=== PATIENT | female | born 1945 | race Caucasian/White ===

== ENCOUNTER 2025-03-02 12:32 | Day surgery (SDC) | payer MEDICARE ==
[2025-03-01 09:59] LABS: BASOPHILS % 0.8 % (0.0-1.0); EOSINOPHILS % 1.8 % (0.0-6.0); LYMPHOCYTES % 26.7 % (18.0-39.1); MONOCYTES % 6.6 % (4.4-11.3); NEUTROPHILS % 63.8 % (38.7-80.0); RED CELL DISTRIBUTION WIDTH 13.8 % (11.7-14.4)
[2025-03-01 10:23] LABS: INR 0.99
[2025-03-01 10:25] LABS: CHOL/HDL RATIO 3.0 (3.0-3.6); LDL CHOLESTEROL 109.0 MG/DL (60-130)
[~2025-03-02] VITALS: Ht 160 cm; Wt 81.6 kg
[2025-03-02] VITALS (13 sets, daily range): BP systolic 100–169; BP diastolic 51–72; PULSE 66–89; RESP 11–23; TEMP 96.8–97.7; O2SAT 93–98
[~2025-03-02 12:32] MED LIST: ASPIRIN81 MG PO; AZOR 5-40 MG T1 EACH PO; GLUCOTROL XL10 MG PO; OMEPRAZOLE40 MG PO; OZEMPIC2 MG/0.75 SC; ZETIA10 MG PO
[2025-03-02] MEDS ORDERED: HEPARIN SOD (PORCINE) 1000 UNIT/ML 30ML ONE (12:38)
[2025-03-02] MEDS ORDERED: VERAPAMIL HCL 2.5 MG/ML 2 ML VIAL ONE (12:38)
[2025-03-02] MEDS ORDERED: HEPARIN SOD/SOD CHLORIDE 2,000 ML ONE (12:39)
[2025-03-02] MEDS ORDERED: IOPAMIDOL 370 MG/ML 100 ML INFUS..BTL INJ ONE ×3 (12:39→15:48)
[2025-03-02] MEDS ORDERED: SODIUM CHLORIDE 0.9% 1000ML 1,000 ML ONE (12:39)
[2025-03-02] MEDS ORDERED: LIDOCAINE HCL 2% LOCAL 20 ML VIAL ONE (12:39)
[2025-03-02] MEDS ORDERED: NITROGLYCERIN/D5W 200 MCG/ML 250 ML ONE (12:39)
[2025-03-02 13:37] LABS: EST GLOMERULAR FILTRATION RATE 87.0 ML/MIN (>=60)
[2025-03-02] MEDS ORDERED: MIDAZOLAM HCL 2 MG/2 ML VIAL ONE ×2 (14:23→15:15)
[2025-03-02] MEDS ORDERED: FENTANYL CITRATE/PF 100MCG/2 ML INJ ONE (14:24)
[2025-03-02] MEDS ORDERED: ADENOSINE 3MG/1ML 30ML VIAL ONE (14:51)
[2025-03-02] MEDS ORDERED: DIPHENHYDRAMINE HCL INJ 50 MG/ML VIAL ONE (15:52)
[2025-03-02] MEDS ORDERED: ASPIRIN 325 MG TAB ONE (15:57)
[2025-03-02] MEDS ORDERED: CLOPIDOGREL BISULFATE 75 MG TAB ONE ×2 (15:58→16:00)
== END 2025-03-02 19:45 | disposition home or self-care (01) ==
LOC: CATH LAB 12:32
PROVIDERS: ATTEND Internal Medicine Cardiovascular Disease
DX: I25.110 Atherosclerotic heart disease of native coronary artery with unstable angina pectoris (principal); I10 Essential (primary) hypertension; E78.00 Pure hypercholesterolemia, unspecified; R09.89 Other specified symptoms and signs involving the circulatory and respiratory systems; E11.9 Type 2 diabetes mellitus without complications; Z01.812 Encounter for preprocedural laboratory examination; Z79.85 Long-term (current) use of injectable non-insulin antidiabetic drugs; Z68.30 Body mass index [BMI] 30.0-30.9, adult; Z86.73 Personal history of transient ischemic attack (TIA), and cerebral infarction without residual deficits
CPT/HCPCS: 36415 ×2; 76937; 80048; 80061; 85025; 85610; 92920; 93458; 93571; C1725 ×2; C1760; C1769 ×6; C1887; C1894 ×2; J0153; J1200; J1644; J2003; J2250; J3010; J7030; Q9967; 99152; 99153